=== PATIENT | female | born 1950 | race Caucasian/White ===

== ENCOUNTER 2023-03-24 02:00 | Emergency (ER) | payer MEDICARE, MEDICAID ==
[~2023-03-24] VITALS: Ht 157.5 cm; Wt 67.2 kg
[2023-03-24 03:05] LABS: BASO # 0.1 10^3/uL (0.0-0.2); BASO % 0.5 % (0.0-1.0); EOS % 0.1 % (0.0-3.0); HEMATOCRIT 28.7 % (36.0-47.0); HEMOGLOBIN 9.3 g/dl (12.0-15.5); LYMPH # 2.6 10^3/uL (1.5-5.0); MEAN CORPUSCULAR HEMOGLOBIN 25.4 pg (27.0-33.0); MEAN CORPUSCULAR HGB CONC 32.4 g/dl (32.0-36.5); MEAN CORPUSCULAR VOLUME 78.4 fl (80.0-96.0); MONO % 12.1 % (2.0-8.0); NEUTROPHILS # 10.6 10^3/uL (1.5-8.5); NEUTROPHILS % 69.1 % (36.0-66.0); PLATELET COUNT, AUTOMATED 316 10^3/uL (150-450); RED BLOOD COUNT 3.66 10^6/uL (4.00-5.40); WHITE BLOOD COUNT 15.3 10^3/uL (4.0-10.0)
[2023-03-24 03:18] LABS: INR 1.45; PROTHROMBIN TIME 17.2 SECONDS (12.5-14.5)
[2023-03-24 03:19] LABS: PARTIAL THROMBOPLASTIN TIME 35.6 SECONDS (24.8-34.2)
[2023-03-24 03:23] LABS: BLOOD UREA NITROGEN 18 MG/DL (9-23); CALCIUM LEVEL 7.1 MG/DL (8.3-10.6); CARBON DIOXIDE LEVEL 26 MMOL/L (20-31); CHLORIDE LEVEL 101 MMOL/L (98-107); CREATININE FOR GFR 0.77 MG/DL (0.55-1.30); GLOMERULAR FILTRATION RATE > 60.0 (>39); GLUCOSE, FASTING 162 MG/DL (74-106); POTASSIUM SERUM 3.5 MMOL/L (3.5-5.1); SODIUM LEVEL 138 MMOL/L (136-145)
[2023-03-24 03:29] LABS: MONO # 1.9 10^3/uL (0.0-0.8)
[2023-03-24 03:31] LABS: ANISOCYTOSIS 3+; PLATELET ESTIMATE NORMAL (NORMAL); TARGET CELLS 3+
[2023-03-24] MEDS ORDERED: NS 1,000 ML IV ONE (04:55)
[2023-03-24] MEDS ORDERED: ONDANSETRON 4MG 2ML VIAL IV ONE (05:30)
[2023-03-24 06:00] VITALS: TEMP 97.4
[2023-03-24] MEDS ORDERED: MIDODRINE 5 MG TAB PO STA (06:38)
[2023-03-24] MEDS ORDERED: DOXYCYCLINE HYCLATE 100MG TABLET PO ONE (07:10)
[2023-03-24 07:15] VITALS: BP 85/50; O2SAT 94
[2023-03-24] MEDS ORDERED: DOXY-443 PO (07:20)
== END 2023-03-24 09:13 | disposition home or self-care (01) ==
LOC: M ED 02:00
DX: R04.0 Epistaxis (principal); D64.9 Anemia, unspecified; E11.9 Type 2 diabetes mellitus without complications; K21.9 Gastro-esophageal reflux disease without esophagitis; F32.A Depression, unspecified; K74.60 Unspecified cirrhosis of liver; Z88.0 Allergy status to penicillin; Z88.2 Allergy status to sulfonamides; Z88.8 Allergy status to other drugs, medicaments and biological substances; Z91.048 Other nonmedicinal substance allergy status; Z79.4 Long term (current) use of insulin; Z79.899 Other long term (current) drug therapy
CPT/HCPCS: 30901; 80048; 85025; 85610; 85730; 96361; 96374; 99284; J2405